=== PATIENT | female | born 1935 | race Two or more races ===

== ENCOUNTER → 2016-07-05 | Outpatient (CLI) | payer MEDICARE, OTHER ==
--- NOTE | 2016-07-05 17:09 | RAD ---
Exam performed: Lumbar spine 5 views. History: Low back pain, recent trauma with humerus fracture. Date of service: 07/05/16. Comparison: None available Findings: AP, lateral, both obliques and coned view of the lumbosacral junction is obtained. Generalized osteopenia. 5 nonrib-bearing vertebral bodies are identified. Chronic compression fracture L3 vertebral body status post vertebroplasty. Mild concavity superior end plates of L1 and L2 vertebral body is seen. Diffuse osteophytic spurring is noted. There is generalized atheromatous calcification of the aorta. Oblique views demonstrate intact pars interarticularis. Nonspecific bowel gas pattern. Impression: 1. Generalized osteopenia and spondylitic changes. 2. Chronic compression fracture L3 vertebral body status post vertebroplasty. 3. Concavity superior endplates of L1 and L2 vertebral bodies. While this could be chronic, however correlate with area of focal pain and if indicated evaluation with MRI of the thoracolumbar spine may be obtained to rule out possibility of compression fracture through the superior endplates.
== END | disposition home or self-care (01) ==
LOC: RAD 16:23
PROVIDERS: ATTEND Orthopaedic Surgery
DX: M85.80 Other specified disorders of bone density and structure, unspecified site (principal); M48.56XA Collapsed vertebra, not elsewhere classified, lumbar region, initial encounter for fracture
CPT/HCPCS: 72110